=== PATIENT | male | born 1940 | race Native Hawaiian/Other Pacific Islander ===

== ENCOUNTER 2018-01-24 15:04 | Inpatient (IN) | payer OTHER, SELFPAY ==
[2018-01-24] VITALS (7 sets, daily range): BP systolic 136–162; BP diastolic 78–113; PULSE 99–133; RESP 16–20; TEMP 36.8–37.6; O2SAT 93–96; BMI 24.0
--- NOTE | 2018-01-24 | DI.ECHO.S_ITS ---
[facility] +---------+ : : [address] : : : : [id number] : : : : Phone: [phone] Echocardiogram Report + + :Name: ROBB CASTANEDA III Study Date: 01/25/2018 Height: 70 in : :[facility] Exam Location: [facility] Weight: 165 lb : : Gender: Male BSA: 1.9 m2 : :: 1940 Age: 77 yrs BP: 133/86 mmHg: :Reason For Study: AFIB : : Performed By: Ronny Kurtz : :Referring: NELSON GOLDBERG : + + Interpretation Summary The left ventricle is normal in size. Left ventricular ejection fraction is estimated to be 25 +/- 5%. Except basal postero-lateral wall, which has relatively preserved contractility, rest of the LV segments are severely hypokinetic. The right ventricle is mildly dilated. Right ventricular systolic function is moderately reduced. There is moderate to severe mitral regurgitation. There is moderate tricuspid regurgitation. The right ventricular systolic pressure is estimated at 47 mmHg assuming a right atrial pressure of 15 mm Hg. The ascending aorta is mildly enlarged. There is a moderate right-sided pleural effusion. There is a moderately large left-sided pleural effusion. Procedure: A two-dimensional transthoracic echocardiogram with color flow and Doppler was performed. The study quality was technically good. There is no prior echocardiogram noted for this patient. The patient had a heart rate of 63-84 beats per minute. Left Ventricle: The left ventricle is normal in size. Left ventricular wall thickness is mildly increased. There is no thrombus. Left ventricular ejection fraction is estimated to be 25 +/- 5%. Except basal posterior lateral wall, which has relatively preserved contractility, rest of the LV segments are severely hypokinetic. Diastolic function could not be accurately assessed due to atrial fibrillation. Right Ventricle: The right ventricle is mildly dilated. Right ventricular systolic function is moderately reduced. The mid to distal free wall is hypokinetic. Atria: The left atrium is severely dilated. The right atrium is mild to moderately dilated. The interatrial septum is intact with no evidence for an atrial septal defect. Mitral Valve: There is mild mitral annular calcification. There is moderate to severe mitral regurgitation. Aortic Valve: The aortic valve is trileaflet. The aortic valve opens well. There is no aortic valve stenosis. There is trace aortic regurgitation. Tricuspid Valve: The tricuspid valve is normal. There is moderate tricuspid regurgitation. The right ventricular systolic pressure is estimated at 47 mmHg assuming a right atrial pressure of 15 mm Hg. Pulmonic Valve: The pulmonic valve leaflets are thin and pliable; valve motion is normal. There is trace pulmonic regurgitation. Great Vessels: The aortic root is normal size. The ascending aorta is mildly enlarged. The pulmonary artery is normal size. The IVC is dilated (diameter is greater than 2.1 cm) and it collapses less than 50% with a sniff. This suggests a high right atrial pressure of 15 mm Hg. Pericardium/ Pleura There is no pericardial effusion. There is a moderate right-sided pleural effusion. There is a moderately large left-sided pleural effusion. MMode/2D Measurements & Calculations LVIDd: 5.6 cm Ao root diam: 3.5 cm LVIDs: 4.6 cm Aortic Jxn: 2.5 cm FS: 17.4 % asc Aorta Diam: 3.5 cm EPSS: 0.95 cm IVSd: 1.1 cm LVPWd: 1.2 cm LV carrillo. diameter/BSA (cm/m^2): 2.9 LV sys. diameter/BSA (cm/m^2): 2.4 LA dimension: 4.6 cm RA long axis: 6.1 cm LA A2 area: 32.7 cm2 RA area: 22.7 cm2 LA A4 area: 29.7 cm2 RA vol: 72.2 ml LA length (vol): 6.7 cm RA : 37.6 ml/m2 LA vol: 123.1 ml IVC diam: 2.7 cm LA vol index: 64.0 ml/m2 RVD1 (basal): 4.1 cm RVD2 (mid): 3.5 cm Doppler Measurements & Calculations Ao V2 max: 96.4 cm/sec LVOT Max Yemi: 65.9 cm/sec Ao V2 mean: 69.3 cm/sec LV V1 max P.8 mmHg Ao max P.7 mmHg LV V1 VTI: 11.3 cm Ao mean P.1 mmHg sev ratio: 0.70 Ao V2 VTI: 16.2 cm MV E max yemi: 52.6 cm/sec TR max yemi: 285.4 cm/sec MV A max yemi: 1.1 cm/sec TR max P.6 mmHg MV E/A: 48.7 PA V2 max: 67.3 cm/sec Med Peak E' Yemi: 4.7 cm/sec PA V2 mean: 45.2 cm/sec E/E' med: 11.2 PA mean P.93 mmHg Lat Peak E' Yemi: 6.7 cm/sec PA pr(Accel): 45.7 mmHg E/E' lat: 7.9 PA Accel Time: 0.07 sec E/e' average: 9.5 MV dec time: 0.15 sec Reading Physician:MICHELLE
--- NOTE | 2018-01-24 15:25 | ED_ITS ---
HPI - Arrhythmia/Palpitations General Chief Complaint: Arrhythmia/Palpitations Stated Complaint: elevated heart rate,back pain Time Seen by Provider: 01/24/18 15:24 Source: patient Mode of arrival: ambulatory Limitations: no limitations History of Present Illness HPI narrative: Patient is a 77-year-old male who presents from the walk-in clinic with elevated heart rate. He has a history of AFib in is noted to be in AFib with RVR rate 130. He denies any chest pain heart palpitations dizziness or lightheadedness. He went to the walk-in clinic for a cough which he has had for the last 3 days. As he is currently staying on his sailboat and resides in [place]. He denies any fever or chills. His cough is nonproductive. He has noticed some weakness. Related Data Home Medications Medication Instructions Recorded Confirmed apixaban [Eliquis] 5 mg PO DAILY 01/24/18 01/24/18 atorvastatin 20 mg PO DAILY 01/24/18 01/24/18 losartan 25 mg PO DAILY 01/24/18 01/24/18 Allergies Allergy/AdvReac Type Severity Reaction Status Date / Time CURLY Inhibitors Allergy Mild Verified 01/24/18 15:27 codeine Allergy Mild Verified 01/24/18 15:27 Review of Systems Review of Systems All systems reviewed & are unremarkable except as noted in HPI and below Constitutional Denies chills, Denies fever(s), Denies lethargy and Denies weakness Eyes Denies change in vision, Denies eye discharge, Denies irritation and Denies loss of vision Cardiovascular Denies chest pain, Denies palpitations and Denies dyspnea Respiratory Reports cough and Denies dyspnea Gastrointestinal Gastrointestinal: Denies abdominal pain, Denies change in bowel habits, Denies diarrhea, Denies nausea and Denies vomiting Genitourinary Denies hematuria, Denies flank pain, Denies urinary incontinence and Denies urinary urgency Musculoskeletal Denies back pain, Denies muscle weakness, Denies numbness and Denies tingling Integumentary/Breasts Denies pruritus, Denies erythema, Denies rash and Denies wounds Neurologic Denies loss of vision, Denies numbness, Denies tingling and Denies weakness Endocrine Denies palpitations [facility] Medical History Atrial fib/flutter, transient (Acute) CHF (congestive heart failure) (Acute) Hypertension (Acute) Myocardial infarction (Acute) Stroke (Acute) Surgical History History of heart artery stent (Acute) Social History Smoking Status: Never smoker additional social history: Lives in [place] Exam Initial Vital Signs Initial Vital Signs: Vital Signs Temperature 98.2 F 01/24/18 15:21 Pulse Rate 132 H 01/24/18 15:21 Respiratory Rate 17 01/24/18 15:21 Blood Pressure 157/111 H 01/24/18 15:21 Pulse Oximetry 96 01/24/18 15:21 Const General: cooperative and well developed Nutritional Appearance: well nourished Orientation: alert, awake, oriented x3 and not confused Neck Neck: normal visual inspection, full ROM and no meningeal signs Chest Chest: normal inspection of the chest Resp Effort & Inspection: normal respiratory effort and able to speak in complete sentences Auscultation: clear to auscultation bilaterally, no rales, no rhonchi and no wheezes Cardio Rate: tachycardic Rhythm: abnormal rhythm irregularly irregular Heart Sounds: S1 normal and S2 normal GI Inspection: non-distended Palpation: soft, no hepatosplenomegaly, No guarding, No pulsatile mass and No tender Auscultation: normal bowel sounds Skin General: no rashes or lesions noted, No jaundice and No petechiae Neuro General: alert, awake and oriented x3 Course Orders Ordered: ED Orders 01/24/18 15:30 XR chest 1V Stat EKG-12 Lead Stat 01/24/18 15:31 Complete Blood Count AUTO DIFF Stat Comprehensive Metabolic Panel Stat Partial Thromboplastin Time Stat Prothrombin Time INR Stat Troponin & CK Cardiac Panel Stat 01/24/18 17:25 Troponin I Stat Discontinued Medications Diltiazem HCl (Cardizem) 20 mg IV NOW ONE Stop: 01/24/18 15:35 Last Admin: 01/24/18 15:40 Dose: 20 mg Ceftriaxone Sodium/Dextrose (Rocephin) 1 gm in 50 mls @ 100 mls/hr IV NOW ONE Stop: 01/24/18 17:43 Last Infusion: 01/24/18 18:12 Dose: 0 mls/hr Admin: 01/24/18 17:19 Dose: 100 mls/hr Azithromycin 500 mg/ Dextrose 250 mls @ 250 mls/hr IV NOW ONE Stop: 01/24/18 17:15 Last Admin: 01/24/18 18:13 Dose: 250 mls/hr Vital Signs - 8 hr 01/24/18 15:21 01/24/18 15:40 01/24/18 17:30 Temperature 98.2 F Pulse Rate 132 H 133 H 101 H Respiratory Rate 17 19 Blood Pressure 157/111 H 162/113 H Blood Pressure [Right Arm] 148/87 H Pulse Oximetry 96 94 01/24/18 17:42 Temperature Pulse Rate 99 H Respiratory Rate 16 Blood Pressure Blood Pressure [Right Arm] 148/87 H Pulse Oximetry 96 MDM - Arrhythmia/Palpitations Lab Data Attestation: I reviewed the patient's lab results. Result diagrams: 01/24/18 15:31 01/24/18 15:31 Lab Results 01/24/18 01/24/18 01/24/18 Range/Units 15:31 15:31 15:31 WBC 10.1 (4.5-11.0) X10^3/uL RBC 4.07 L (4.5-5.9) X10^6/uL Hgb 11.1 L (13.5-17.5) g/dL Hct 33.4 L (41-53) % MCV 82.0 (80-100) fL MCH 27.3 (26-34) PG MCHC 33.2 (30-36) % RDW 16.8 H (11.6-14.8) % Plt Count 149 L (150-400) X10^3/uL Neut % (Auto) 83.0 H (50-75) % Lymph % (Auto) 7.8 L (25-40) % [place] % (Auto) 8.9 (3-14) % Eos % (Auto) 0.1 L (2-4) % Baso % (Auto) 0.2 (0-2) % Neut # (Auto) 8400 H (3696-9819) /uL PT 15.3 H (10.1-12.7) SECONDS INR 1.4 H (0.9-1.3) APTT 33 (26.4-36.2) SECONDS Sodium 148 H (137-145) mmol/L Potassium 4.2 (3.4-5.1) mmol/L Chloride 108 H (98-107) mmol/L Carbon Dioxide 26 (22-32) mmol/L BUN 23 H (9-20) mg/dL Creatinine 0.90 (0.66-1.25) mg/dL Estimated GFR > 60.0 (>60) mL/min BUN/Creatinine Ratio 25.6 H (6-22) Glucose 118 H (80-110) mg/dL Calcium 9.2 (8.4-10.2) mg/dL Total Bilirubin 0.8 (0.2-1.3) mg/dL AST 49 (17-59) IU/L ALT 30 (21-72) IU/L Alkaline Phosphatase 56 (38-126) U/L Total Creatine Kinase 214 H (55-170) U/L CK-MB (CK-2) 5.71 H (<2.37) ng/mL CK-MB (CK-2) Rel Index 2.7 (1.5-5.0) % Troponin I 0.556 H* (0.01-0.034) ng/mL Total Protein 7.0 (6.3-8.2) g/dL Albumin 4.1 (3.5-5.0) g/dL Globulin 2.9 (1.7-4.1) g/dL Albumin/Globulin Ratio 1.4 (1.0-2.8) // Range/Units 17:25 WBC (4.5-11.0) X10^3/uL RBC (4.5-5.9) X10^6/uL Hgb (13.5-17.5) g/dL Hct (41-53) % MCV (80-100) fL MCH (26-34) PG MCHC (30-36) % RDW (11.6-14.8) % Plt Count (150-400) X10^3/uL Neut % (Auto) (50-75) % Lymph % (Auto) (25-40) % [place] % (Auto) (3-14) % Eos % (Auto) (2-4) % Baso % (Auto) (0-2) % Neut # (Auto) (7413-6776) /uL PT (10.1-12.7) SECONDS INR (0.9-1.3) APTT (26.4-36.2) SECONDS Sodium (137-145) mmol/L Potassium (3.4-5.1) mmol/L Chloride (98-107) mmol/L Carbon Dioxide (22-32) mmol/L BUN (9-20) mg/dL Creatinine (0.66-1.25) mg/dL Estimated GFR (>60) mL/min BUN/Creatinine Ratio (6-22) Glucose (80-110) mg/dL Calcium (8.4-10.2) mg/dL Total Bilirubin (0.2-1.3) mg/dL AST (17-59) IU/L ALT (21-72) IU/L Alkaline Phosphatase (38-126) U/L Total Creatine Kinase (55-170) U/L CK-MB (CK-2) (<2.37) ng/mL CK-MB (CK-2) Rel Index (1.5-5.0) % Troponin I 0.553 H* (0.01-0.034) ng/mL Total Protein (6.3-8.2) g/dL Albumin (3.5-5.0) g/dL Globulin (1.7-4.1) g/dL Albumin/Globulin Ratio (1.0-2.8) Imaging Data Chest x-ray: Radiologist's impression: [address] [address] XRay Report Signed Patient: Aguilar Huber III MR#: [id number] : 1940 Acct:[id number] Age/Sex: 77 / M Date of Service: 01/24/18 Loc: ED Accession Number: [id number] Procedure: XR chest 1V Ordering Provider: Shell Mehta D.O. PROCEDURE: XR CHEST 1V INDICATIONS: chest pain TECHNIQUE: One view of the chest was acquired. COMPARISON: None. FINDINGS: Surgical changes and devices: None. Lungs and pleura: No pleural effusions or pneumothorax. Patchy air space opacity noted in the right lung base concerning for pneumonia. There is mild cephalization of pulmonary vasculature and increased interstitial prominence concerning for CHF. Mediastinum: Mediastinal contours appear normal. Heart size is enlarged. Bones and chest wall: No suspicious bony lesions. Overlying soft tissues appear unremarkable. IMPRESSION: 1. Patchy opacity in the right lung base suspicious for pneumonia. 2. Cephalization of pulmonary vasculature and interstitial prominence concerning for CHF. Dictated by: Ilana Newby MD, PhD on 01/24/2018 at 15:48 ECG Data Attestation: I personally reviewed and interpreted this ECG as follows: Interpretation: EKG 1.: Atrial flutter rate [address] changes no priors to compare EKG 2. Atrial flutter rate 67 with PVCs no acute ST changes MDM Narrative Medical decision making narrative: Patient has pneumonia on x-ray with signs and symptoms consistent with pneumonia including cough and weakness. He is also noted to be in atrial flutter with RVR rate 130 he has. He responded well to diltiazem. He is unsure how long he has been in this atrial flutter. He has not had any chest pain or symptoms. He denies any medications except for Eliquis. Troponin is elevated this is likely demand ischemia from the AFib and possible pneumonia. He has not had any chest pain. Dr. Kebede has been updated on symptoms and test results recommends repeat troponin. She is aware of repeat troponin and it is ability. Agrees with observation. Recommend metoprolol 25 p.o. Q 6 and antibiotics for pneumonia. Discharge Plan Departure Patient Disposition: Admitted as Observation Clinical Impression: Atrial fibrillation, Pneumonia Admit Date/Time: 01/24/18 18:23 Admit Provider: Miranda Kebede
--- NOTE | 2018-01-24 15:30 | DI.RAD.S_ITS ---
PROCEDURE: XR CHEST 1V INDICATIONS: chest pain TECHNIQUE: One view of the chest was acquired. COMPARISON: None. FINDINGS: Surgical changes and devices: None. Lungs and pleura: No pleural effusions or pneumothorax. Patchy air space opacity noted in the right lung base concerning for pneumonia. There is mild cephalization of pulmonary vasculature and increased interstitial prominence concerning for CHF. Mediastinum: Mediastinal contours appear normal. Heart size is enlarged. Bones and chest wall: No suspicious bony lesions. Overlying soft tissues appear unremarkable. IMPRESSION: 1. Patchy opacity in the right lung base suspicious for pneumonia. 2. Cephalization of pulmonary vasculature and interstitial prominence concerning for CHF. Dictated by: Ilana Newby MD, PhD on 01/24/2018 at 15:48 Approved by: Ilana Newby MD, PhD on 01/24/2018 at 15:49
[2018-01-24] MEDS: dilTIAZem 25 MG/5 ML SDV 20 MG IV (15:40)
[2018-01-24 15:47] LABS: Add Manual Diff / Slide Review NO; Basophils Percent Auto 0.2 % (0-2); Eosinophils Percent Auto 0.1 % (2-4); Hematocrit 33.4 % (41-53); Hemoglobin 11.1 g/dL (13.5-17.5); Lymphocytes Percent Auto 7.8 % (25-40); Mean Corpuscular HGB Conc 33.2 % (30-36); Mean Corpuscular Hemoglobin 27.3 PG (26-34); Monocytes Percent Auto 8.9 % (3-14); Neutrophils Absolute Auto 8400 /uL (3000-5900); Platelet Count 149 X10^3/uL (150-400); Red Blood Cell Count 4.07 X10^6/uL (4.5-5.9); Red Cell Distribution Width 16.8 % (11.6-14.8); White Blood Cell Count 10.1 X10^3/uL (4.5-11.0)
[2018-01-24 15:48] LABS: INR 1.4 (0.9-1.3); Prothrombin Time 15.3 SECONDS (10.1-12.7)
[2018-01-24 15:50] LABS: PTT Partial Thromboplastin Tim 33 SECONDS (26.4-36.2)
--- NOTE | 2018-01-24 16:01 | PC.NURSE ---
Pt states he has had a cold with cough and back pain for a week. Went to walk in clinic for the cold and was sent here for rapid heart rate. In the past, he has experienced afib with no symptoms. Today he has no symptoms other than his cold symptoms. He denies chest pain, palpitations, nausea, vomiting. He has shortness of breath associated with his cold, per the pt.
[2018-01-24 16:43] LABS: Alanine Aminotransferase 30 IU/L (21-72); Albumin 4.1 g/dL (3.5-5.0); Albumin Globulin Ratio 1.4 (1.0-2.8); Alkaline Phosphatase 56 U/L (38-126); Aspartate Aminotransferase 49 IU/L (17-59); BUN Creatinine Ratio 25.6 (6-22); Bilirubin Total 0.8 mg/dL (0.2-1.3); Blood Urea Nitrogen 23 mg/dL (9-20); Calcium 9.2 mg/dL (8.4-10.2); Carbon Dioxide 26 mmol/L (22-32); Chloride 108 mmol/L (98-107); Creatine Kinase 214 U/L (55-170); Estimated Glomerular Filt Rate > 60.0 mL/min (>60); Globulin 2.9 g/dL (1.7-4.1); Glucose 118 mg/dL (80-110); HEMOLYSIS < 15 (0-50); Potassium 4.2 mmol/L (3.4-5.1); Sodium 148 mmol/L (137-145)
[2018-01-24 16:58] LABS: CKMB % Relative Index 2.7 % (1.5-5.0); Creatine Kinase MB 5.71 ng/mL (<2.37)
[2018-01-24] MEDS: CEFTRIAXONE 1 GM/50 ML FROZ.PIGGY IV (17:19)
[2018-01-24 17:22] LABS: Troponin I 0.556 ng/mL (0.01-0.034)
[2018-01-24 17:51] LABS: Troponin I 0.553 ng/mL (0.01-0.034)
[2018-01-24] MEDS: AZITHROMYCIN 500 MG in DEXTROSE 5% IN WATER 250 ML IV (18:13)
--- NOTE | 2018-01-24 19:47 | PC.NURSE ---
Addendum entered by Marisabel Madrigal R.N. 01/24/18 22:06: Pt contnues in a-fib. aware. Metoprolol given Pt denies any S/S or discomfort. Call light w/in reach. Continue w/plan of care. Original Note: Pt arrived from ER @ 1920. Alert/oriented. ' Denies discomfort at this time. VS [id number]/78 Tele placed. IV infusing as per orders via pump w/o inciidence, Pt oriented to room & call system.
--- NOTE | 2018-01-24 21:28 | P.HP_ITS ---
History of Present Illness Chief complaint: elevated heart rate,back pain Narrative: Patient is a 77 y/o man with a history of atrial fibrillation, stroke , OR s/p stent who was boating from [place] when he developed back pain, neck pain, and shortness of breath. His family urged him to be evaluated at the urgent care clinic where he was found to be in Atrial Fibrillation with rapid ventricular response. The patient was sent to the ED where Chest Xray confirmed a right lower lobe pneumonia. Patient also noted to have an elevated troponin and rapid heart rate. Patient continues to complain of shortness of breath with exertion. He describes right sided shoulder/arm pain worse with activity. He denies chest pain or palpitations. He has had a non productive cough, no fever, no chills, no nausea, vomitting, diarrhea, dysuria, pyuria, lower extremity swelling, orthpnea, headache blurred vision, double vision or weakness. Patient History Medical History Atrial fib/flutter, transient (Acute) CHF (congestive heart failure) (Acute) Hypertension (Acute) Myocardial infarction (Acute) Stroke (Acute) Surgical History History of heart artery stent (Acute) Family & Social History Family History: Reviewed 01/24/18 by Miranda Kebede MD Social History: No smoking, drinks 1-2 drinks per night household members family Prior Living Arrangements House Safety & Behavioral: Feels Safe in Current Yes Environment Been Physically Hurt or No Threatened By a Person Suicidal Ideation Description None Suicide Plan Description No Plan Tobacco & Substance use: Smoking Status Never smoker alcohol intake frequency a few times a week Substance Use Type does not use Meds Home Medications Medication Instructions Recorded Confirmed Type apixaban [Eliquis] 5 mg PO DAILY 01/24/18 01/24/18 History atorvastatin 20 mg PO DAILY 01/24/18 01/24/18 History losartan 25 mg PO DAILY 01/24/18 01/24/18 History Allergies Allergy/AdvReac Type Severity Reaction Status Date / Time CURLY Inhibitors Allergy Mild Verified 01/24/18 15:27 codeine Allergy Mild Verified 01/24/18 15:27 Review of Systems Review of Systems All systems reviewed & are unremarkable except as noted in HPI and below Exam Vital Signs (past 8 hours): - 01/24/18 15:21 01/24/18 15:40 01/24/18 17:30 Temperature 98.2 F Pulse Rate 132 H 133 H 101 H Respiratory Rate 17 19 Blood Pressure 157/111 H 162/113 H Blood Pressure [Right Arm] 148/87 H Pulse Oximetry 96 94 01/24/18 17:42 01/24/18 18:41 01/24/18 18:42 Temperature Pulse Rate 99 H 101 H 101 H Respiratory Rate 16 18 18 Blood Pressure 145/92 H Blood Pressure [Right Arm] 148/87 H 145/92 H Pulse Oximetry 96 95 95 01/24/18 19:20 Temperature 99.7 F H Pulse Rate 104 H Respiratory Rate 20 Blood Pressure 136/78 H Blood Pressure [Right Arm] Pulse Oximetry 93 Oxygen Delivery Method Room Air Oxygen Flow Rate 0 Narrative Exam Narrative: HEENT: NC/AT, PERRL, EOMI, NO facial droop, Neck supple, No JVD , no Adenopathy Lungs: Right basilar crackles CV: Tachy Irregularly irregular Abd: Soft/ non tender/ non distended, no HSM Ext: trace edema Neuro: non focal Skin: no lesions Objective Labs Result Diagrams: 01/24/18 15:31 01/24/18 15:31 Labs: Laboratory Results - last 24 hr 01/24/18 01/24/18 01/24/18 15:31 15:31 15:31 WBC 10.1 RBC 4.07 L Hgb 11.1 L Hct 33.4 L MCV 82.0 MCH 27.3 MCHC 33.2 RDW 16.8 H Plt Count 149 L Neut % (Auto) 83.0 H Lymph % (Auto) 7.8 L [place] % (Auto) 8.9 Eos % (Auto) 0.1 L Baso % (Auto) 0.2 Neut # (Auto) 8400 H PT 15.3 H INR 1.4 H APTT 33 Sodium 148 H Potassium 4.2 Chloride 108 H Carbon Dioxide 26 BUN 23 H Creatinine 0.90 Estimated GFR > 60.0 BUN/Creatinine Ratio 25.6 H Glucose 118 H Calcium 9.2 Total Bilirubin 0.8 AST 49 ALT 30 Alkaline Phosphatase 56 Total Creatine Kinase 214 H CK-MB (CK-2) 5.71 H CK-MB (CK-2) Rel Index 2.7 Troponin I 0.556 H* Total Protein 7.0 Albumin 4.1 Globulin 2.9 Albumin/Globulin Ratio 1.4 01/24/18 17:25 WBC RBC Hgb Hct MCV MCH MCHC RDW Plt Count Neut % (Auto) Lymph % (Auto) [place] % (Auto) Eos % (Auto) Baso % (Auto) Neut # (Auto) PT INR APTT Sodium Potassium Chloride Carbon Dioxide BUN Creatinine Estimated GFR BUN/Creatinine Ratio Glucose Calcium Total Bilirubin AST ALT Alkaline Phosphatase Total Creatine Kinase CK-MB (CK-2) CK-MB (CK-2) Rel Index Troponin I 0.553 H* Total Protein Albumin Globulin Albumin/Globulin Ratio Assessment & Plan (1) Atrial fibrillation: Problem details: Will continue metoprolol every 6 hours, Will check echo cardiogram, check TSH Continue eliquis Qualifiers: Atrial fibrillation type: persistent Qualified Code(s): I48.1 - Persistent atrial fibrillation Current visit: Yes Status: Acute (2) Pneumonia: Problem details: Continue IV antibiotics, Tylenol for fever Qualifiers: Aspiration pneumonia type: Laterality: right Lung location: lower lobe of lung Pneumonia type: due to unspecified organism Qualified Code(s): J18.1 - Lobar pneumonia, unspecified organism Current visit: Yes Status: Acute (3) Acute hypernatremia: Problem details: will follow closely Current visit: Yes Status: Acute (4) Elevated troponin: Problem details: Will trend troponins and continue Asa, Statin, Cardiology consult in Am Current visit: Yes Status: Acute Plan: Assessment/Plan Narrative: Full Code per patient wishes
[2018-01-24] MEDS: APIXABAN 5 MG TABLET PO (22:02)
[2018-01-24] MEDS: levoFLOXacin 750 MG/150 ML PIGGYBACK 100 MG IV (22:02)
[2018-01-24] MEDS: METOPROLOL 50 MG TABLET PO (22:10)
[2018-01-25] VITALS (8 sets, daily range): BP systolic 132–151; BP diastolic 70–118; PULSE 45–123; RESP 12–22; TEMP 36.5–36.9; O2SAT 91–94
--- NOTE | 2018-01-25 00:43 | PC.NURSE ---
Addendum entered by Janice Fall R.N. 01/25/18 04:31: Has been awake entire shift but declined earlier offer to call MD for sleeping med and also declined other sleep aid offers such as warm milk or tea. Current BP is 140/103 on left arm and 147/103 on right arm with HR on telemetry showing 125 bpm; medicated with scheduled Metoprolol at this time since last dose was at 2200 and is ordered q6h. Original Note: Patient is alert and oriented. Breath sounds are CTA with RA sat of 93%; does sound coarse in right LL. HR is irregular with telemetry reading of afib CVR/BBB at 0000. Currently BP is 139/103 on right arm and 143/78 on left arm. Denies nausea. BT present and abdomen is soft. Denies dysuria, frequency, urgency or incontinence and is using urinal. Independent with bed mobility. Reports no recent falls but did request patient to call for assistance when getting out of bed as is moderate fall risk; patient verbalizes understanding and is agreeable. Denies pain.
[2018-01-25 01:40] LABS: Creatine Kinase 196 U/L (55-170)
[2018-01-25 01:54] LABS: Troponin I 0.688 ng/mL (0.01-0.034)
[2018-01-25] MEDS: METOPROLOL 25 MG TABLET 50 MG PO (04:26)
[2018-01-25 05:56] LABS: Add Manual Diff / Slide Review NO; Basophils Percent Auto 0.2 % (0-2); Eosinophils Percent Auto 0.1 % (2-4); Hematocrit 35.3 % (41-53); Hemoglobin 11.6 g/dL (13.5-17.5); Lymphocytes Percent Auto 11.8 % (25-40); Mean Corpuscular Hemoglobin 27.1 PG (26-34); Mean Corpuscular Volume 82.3 fL (80-100); Monocytes Percent Auto 8.9 % (3-14); Neutrophils Absolute Auto 7500 /uL (3000-5900); Platelet Count 156 X10^3/uL (150-400); Red Blood Cell Count 4.29 X10^6/uL (4.5-5.9); Red Cell Distribution Width 16.9 % (11.6-14.8); White Blood Cell Count 9.4 X10^3/uL (4.5-11.0)
[2018-01-25 06:13] LABS: BUN Creatinine Ratio 24.4 (6-22); Blood Urea Nitrogen 22 mg/dL (9-20); Carbon Dioxide 26 mmol/L (22-32); Chloride 107 mmol/L (98-107); Estimated Glomerular Filt Rate > 60.0 mL/min (>60); Glucose 130 mg/dL (80-110); HEMOLYSIS < 15 (0-50); Potassium 4.4 mmol/L (3.4-5.1); Sodium 142 mmol/L (137-145)
[2018-01-25 06:54] LABS: TSH w/ Reflex to FT4 3.19 uIU/mL (0.47-4.68)
--- NOTE | 2018-01-25 08:19 | PM.HP.1 ---
History of Present Illness Chief complaint: elevated heart rate,back pain Narrative: Patient is a 77 y/o man with a history of atrial fibrillation, stroke, [place] s/p stent who was boating from [place] when he developed back pain, neck pain, and shortness of breath. His family urged him to be evaluated at the urgent care clinic where he was found to be in Atrial Fibrillation with rapid ventricular response. The patient was sent to the ED where Chest Xray confirmed a right lower lobe pneumonia. Patient also noted to have an elevated troponin and rapid heart rate. Patient continues to complain of shortness of breath with exertion. He describes right sided shoulder/arm pain worse with activity. He denies chest pain or palpitations. He has had a non productive cough, no fever, no chills, no nausea, vomitting, diarrhea, dysuria, pyuria, lower extremity swelling, orthpnea, headache blurred vision, double vision or weakness. Patient History Medical History Atrial fib/flutter, transient (Acute) CHF (congestive heart failure) (Acute) Hypertension (Acute) Myocardial infarction (Acute) Stroke (Acute) Surgical History History of heart artery stent (Acute) Family & Social History Social History: household members family Prior Living Arrangements House Safety & Behavioral: Feels Safe in Current Yes Environment Been Physically Hurt or No Threatened By a Person Suicidal Ideation Description None Suicide Plan Description No Plan Tobacco & Substance use: Smoking Status Never smoker alcohol intake frequency a few times a week Substance Use Type does not use Meds Home Medications Medication Instructions Recorded Confirmed Type apixaban [Eliquis] 5 mg PO DAILY 01/24/18 01/24/18 History atorvastatin 20 mg PO DAILY 01/24/18 01/24/18 History losartan 25 mg PO DAILY 01/24/18 01/24/18 History Allergies Allergy/AdvReac Type Severity Reaction Status Date / Time CURLY Inhibitors Allergy Mild Verified 01/24/18 15:27 codeine Allergy Mild Verified 01/24/18 15:27 Exam Vital Signs (past 8 hours): - 01/25/18 00:25 01/25/18 00:33 01/25/18 04:15 Temperature 97.9 F 97.8 F Pulse Rate 101 H 110 H Respiratory Rate 16 16 Blood Pressure 142/78 H 140/103 H Pulse Oximetry 93 93 91 Oxygen Delivery Method Room Air Oxygen Flow Rate 0 Objective Labs Result Diagrams: 01/25/18 05:27 01/25/18 05:27 Labs: Laboratory Results - last 24 hr 01/24/18 01/24/18 01/24/18 15:31 15:31 15:31 WBC 10.1 RBC 4.07 L Hgb 11.1 L Hct 33.4 L MCV 82.0 MCH 27.3 MCHC 33.2 RDW 16.8 H Plt Count 149 L Neut % (Auto) 83.0 H Lymph % (Auto) 7.8 L Mccone % (Auto) 8.9 Eos % (Auto) 0.1 L Baso % (Auto) 0.2 Neut # (Auto) 8400 H PT 15.3 H INR 1.4 H APTT 33 Sodium 148 H Potassium 4.2 Chloride 108 H Carbon Dioxide 26 BUN 23 H Creatinine 0.90 Estimated GFR > 60.0 BUN/Creatinine Ratio 25.6 H Glucose 118 H Calcium 9.2 Total Bilirubin 0.8 AST 49 ALT 30 Alkaline Phosphatase 56 Total Creatine Kinase 214 H CK-MB (CK-2) 5.71 H CK-MB (CK-2) Rel Index 2.7 Troponin I 0.556 H* B-Natriuretic Peptide Total Protein 7.0 Albumin 4.1 Globulin 2.9 Albumin/Globulin Ratio 1.4 [facility] 01/24/18 01/25/18 01/25/18 17:25 01:22 05:27 WBC 9.4 RBC 4.29 L Hgb 11.6 L Hct 35.3 L MCV 82.3 MCH 27.1 MCHC 33.0 RDW 16.9 H Plt Count 156 Neut % (Auto) 79.0 H Lymph % (Auto) 11.8 L Mccone % (Auto) 8.9 Eos % (Auto) 0.1 L Baso % (Auto) 0.2 Neut # (Auto) 7500 H PT INR APTT Sodium Potassium Chloride Carbon Dioxide BUN Creatinine Estimated GFR BUN/Creatinine Ratio Glucose Calcium Total Bilirubin AST ALT Alkaline Phosphatase Total Creatine Kinase 196 H CK-MB (CK-2) CK-MB (CK-2) Rel Index Troponin I 0.553 H* 0.688 H* B-Natriuretic Peptide Total Protein Albumin Globulin Albumin/Globulin Ratio [facility] 01/25/18 01/25/18 01/25/18 05:27 05:27 05:27 WBC RBC Hgb Hct MCV MCH MCHC RDW Plt Count Neut % (Auto) Lymph % (Auto) Mccone % (Auto) Eos % (Auto) Baso % (Auto) Neut # (Auto) PT INR APTT Sodium 142 Potassium 4.4 Chloride 107 Carbon Dioxide 26 BUN 22 H Creatinine 0.90 Estimated GFR > 60.0 BUN/Creatinine Ratio 24.4 H Glucose 130 H Calcium 9.0 Total Bilirubin AST ALT Alkaline Phosphatase Total Creatine Kinase CK-MB (CK-2) CK-MB (CK-2) Rel Index Troponin I B-Natriuretic Peptide 822.0 H Total Protein Albumin Globulin Albumin/Globulin Ratio TSH 3.19
[2018-01-25] MEDS: MORPHINE 2 MG/ML INJ IV (08:27)
[2018-01-25] MEDS: dilTIAZem 25 MG/5 ML SDV 10 MG IV (08:48)
[2018-01-25] MEDS: FUROSEMIDE 40 MG/4 ML VIAL IV (08:48)
[2018-01-25] MEDS: METOPROLOL 50 MG TABLET PO ×2 (10:06→17:30)
[2018-01-25] MEDS: ATORVASTATIN 20 MG TABLET PO (10:06)
[2018-01-25] MEDS: DOCUSATE 100 MG CAPSULE PO ×2 (10:06→20:56)
[2018-01-25] MEDS: SODIUM CHLORIDE 0.9% FLUSH 10 ML IV ×2 (10:06→20:56)
[2018-01-25] MEDS: ASPIRIN EC 81 MG TABLET PO (10:09)
[2018-01-25] MEDS: APIXABAN 5 MG TABLET PO (10:10)
--- NOTE | 2018-01-25 11:55 | P.HP_ITS ---
History of Present Illness Chief complaint: elevated heart rate,back pain Narrative: Patient is a 77 y/o man with a history of atrial fibrillation, stroke , [place] s/p stent who was boating from [place] when he developed back pain, neck pain, and shortness of breath. His family urged him to be evaluated at the urgent care clinic where he was found to be in Atrial Fibrillation with rapid ventricular response. The patient was sent to the ED where Chest Xray confirmed a right lower lobe pneumonia. Patient also noted to have an elevated troponin and rapid heart rate. Patient continues to complain of shortness of breath with exertion. He describes right sided shoulder/arm pain worse with activity. He denies chest pain or palpitations. He has had a non productive cough, no fever, no chills, no nausea, vomitting, diarrhea, dysuria, pyuria, lower extremity swelling, orthpnea, headache blurred vision, double vision or weakness. Patient History Medical History Atrial fib/flutter, transient (Acute) CHF (congestive heart failure) (Acute) Hypertension (Acute) Myocardial infarction (Acute) Stroke (Acute) Surgical History History of heart artery stent (Acute) Family & Social History Social History: household members family Prior Living Arrangements House Safety & Behavioral: Feels Safe in Current Yes Environment Been Physically Hurt or No Threatened By a Person Suicidal Ideation Description None Suicide Plan Description No Plan Tobacco & Substance use: Smoking Status Never smoker alcohol intake frequency a few times a week Substance Use Type does not use Meds Home Medications Medication Instructions Recorded Confirmed Type apixaban [Eliquis] 5 mg PO DAILY 01/24/18 01/24/18 History atorvastatin 20 mg PO DAILY 01/24/18 01/24/18 History losartan 25 mg PO DAILY 01/24/18 01/24/18 History Allergies Allergy/AdvReac Type Severity Reaction Status Date / Time CURLY Inhibitors Allergy Mild Verified 01/24/18 15:27 codeine Allergy Mild Verified 01/24/18 15:27 Exam Vital Signs (past 8 hours): - 01/25/18 00:25 01/25/18 00:33 01/25/18 04:15 Temperature 97.9 F 97.8 F Pulse Rate 101 H 110 H Respiratory Rate 16 16 Blood Pressure 142/78 H 140/103 H Pulse Oximetry 93 93 91 Oxygen Delivery Method Room Air Oxygen Flow Rate 0 Objective Labs Result Diagrams: 01/25/18 05:27 01/25/18 05:27 Labs: Laboratory Results - last 24 hr 01/24/18 01/24/18 01/24/18 15:31 15:31 15:31 WBC 10.1 RBC 4.07 L Hgb 11.1 L Hct 33.4 L MCV 82.0 MCH 27.3 MCHC 33.2 RDW 16.8 H Plt Count 149 L Neut % (Auto) 83.0 H Lymph % (Auto) 7.8 L [place] % (Auto) 8.9 Eos % (Auto) 0.1 L Baso % (Auto) 0.2 Neut # (Auto) 8400 H PT 15.3 H INR 1.4 H APTT 33 Sodium 148 H Potassium 4.2 Chloride 108 H Carbon Dioxide 26 BUN 23 H Creatinine 0.90 Estimated GFR > 60.0 BUN/Creatinine Ratio 25.6 H Glucose 118 H Calcium 9.2 Total Bilirubin 0.8 AST 49 ALT 30 Alkaline Phosphatase 56 Total Creatine Kinase 214 H CK-MB (CK-2) 5.71 H CK-MB (CK-2) Rel Index 2.7 Troponin I 0.556 H* B-Natriuretic Peptide Total Protein 7.0 Albumin 4.1 Globulin 2.9 Albumin/Globulin Ratio 1.4 [facility] 01/24/18 01/25/18 01/25/18 17:25 01:22 05:27 WBC 9.4 RBC 4.29 L Hgb 11.6 L Hct 35.3 L MCV 82.3 MCH 27.1 MCHC 33.0 RDW 16.9 H Plt Count 156 Neut % (Auto) 79.0 H Lymph % (Auto) 11.8 L [place] % (Auto) 8.9 Eos % (Auto) 0.1 L Baso % (Auto) 0.2 Neut # (Auto) 7500 H PT INR APTT Sodium Potassium Chloride Carbon Dioxide BUN Creatinine Estimated GFR BUN/Creatinine Ratio Glucose Calcium Total Bilirubin AST ALT Alkaline Phosphatase Total Creatine Kinase 196 H CK-MB (CK-2) CK-MB (CK-2) Rel Index Troponin I 0.553 H* 0.688 H* B-Natriuretic Peptide Total Protein Albumin Globulin Albumin/Globulin Ratio [facility] 01/25/18 01/25/18 01/25/18 05:27 05:27 05:27 WBC RBC Hgb Hct MCV MCH MCHC RDW Plt Count Neut % (Auto) Lymph % (Auto) [place] % (Auto) Eos % (Auto) Baso % (Auto) Neut # (Auto) PT INR APTT Sodium 142 Potassium 4.4 Chloride 107 Carbon Dioxide 26 BUN 22 H Creatinine 0.90 Estimated GFR > 60.0 BUN/Creatinine Ratio 24.4 H Glucose 130 H Calcium 9.0 Total Bilirubin AST ALT Alkaline Phosphatase Total Creatine Kinase CK-MB (CK-2) CK-MB (CK-2) Rel Index Troponin I B-Natriuretic Peptide 822.0 H Total Protein Albumin Globulin Albumin/Globulin Ratio TSH 3.19
--- NOTE | 2018-01-25 12:00 | P.PN_ITS ---
Subjective Date Patient Seen: 01/25/18 Interval history: Difficult night. He remained in rapid atrial fibrillation with minimal response to the metoprolol He felt more short of breath this morning with decreased oxygenation He continues to have back and shoulder pain Exam Vital Signs (past 8 hours): - 01/25/18 04:15 01/25/18 08:00 Temperature 97.8 F 97.7 F Pulse Rate 110 H 121 H Respiratory Rate 16 22 Blood Pressure 140/103 H 151/109 H Pulse Oximetry 91 92 Oxygen Delivery Method Room Air Oxygen Flow Rate 0 Narrative Exam Narrative: Lungs: scattered crackles bilaterally CV: Tachy irregularly, irregular Nl S1S2 3/6SEM Abd: soft/non tender Ext: trace edema Objective Labs Result Diagrams: 01/25/18 05:27 01/25/18 05:27 Labs: Laboratory Results - last 24 hr 01/24/18 01/24/18 01/24/18 15:31 15:31 15:31 WBC 10.1 RBC 4.07 L Hgb 11.1 L Hct 33.4 L MCV 82.0 MCH 27.3 MCHC 33.2 RDW 16.8 H Plt Count 149 L Neut % (Auto) 83.0 H Lymph % (Auto) 7.8 L [place] % (Auto) 8.9 Eos % (Auto) 0.1 L Baso % (Auto) 0.2 Neut # (Auto) 8400 H PT 15.3 H INR 1.4 H APTT 33 Sodium 148 H Potassium 4.2 Chloride 108 H Carbon Dioxide 26 BUN 23 H Creatinine 0.90 Estimated GFR > 60.0 BUN/Creatinine Ratio 25.6 H Glucose 118 H Calcium 9.2 Total Bilirubin 0.8 AST 49 ALT 30 Alkaline Phosphatase 56 Total Creatine Kinase 214 H CK-MB (CK-2) 5.71 H CK-MB (CK-2) Rel Index 2.7 Troponin I 0.556 H* B-Natriuretic Peptide Total Protein 7.0 Albumin 4.1 Globulin 2.9 Albumin/Globulin Ratio 1.4 TSH 01/24/18 01/25/18 01/25/18 17:25 01:22 05:27 WBC 9.4 RBC 4.29 L Hgb 11.6 L Hct 35.3 L MCV 82.3 MCH 27.1 MCHC 33.0 RDW 16.9 H Plt Count 156 Neut % (Auto) 79.0 H Lymph % (Auto) 11.8 L [place] % (Auto) 8.9 Eos % (Auto) 0.1 L Baso % (Auto) 0.2 Neut # (Auto) 7500 H PT INR APTT Sodium Potassium Chloride Carbon Dioxide BUN Creatinine Estimated GFR BUN/Creatinine Ratio Glucose Calcium Total Bilirubin AST ALT Alkaline Phosphatase Total Creatine Kinase 196 H CK-MB (CK-2) CK-MB (CK-2) Rel Index Troponin I 0.553 H* 0.688 H* B-Natriuretic Peptide Total Protein Albumin Globulin Albumin/Globulin Ratio TSH 01/25/18 01/25/18 01/25/18 05:27 05:27 05:27 WBC RBC Hgb Hct MCV MCH MCHC RDW Plt Count Neut % (Auto) Lymph % (Auto) [place] % (Auto) Eos % (Auto) Baso % (Auto) Neut # (Auto) PT INR APTT Sodium 142 Potassium 4.4 Chloride 107 Carbon Dioxide 26 BUN 22 H Creatinine 0.90 Estimated GFR > 60.0 BUN/Creatinine Ratio 24.4 H Glucose 130 H Calcium 9.0 Total Bilirubin AST ALT Alkaline Phosphatase Total Creatine Kinase CK-MB (CK-2) CK-MB (CK-2) Rel Index Troponin I B-Natriuretic Peptide 822.0 H Total Protein Albumin Globulin Albumin/Globulin Ratio TSH 3.19 Assessment & Plan (1) Non-STEMI (non-ST elevated myocardial infarction): Problem details: Patient is on Asa, B-renaldo, Statin He will need nuclear medicine perfusion study once his heart rate is controlled Current visit: Yes Status: Acute (2) Acute systolic heart failure: Problem details: Continue IV Lasix for now. Will resume CURLY-1 Given hypertension he needs it now Echo: confirmed EF 25% with hypokinetic ventricle, dilated right ventricle, severe mitral regurgitation, and some tricuspid regurgitation Current visit: Yes Status: Acute (3) Atrial fibrillation: Problem details: Will continue metoprolol every 6 hours, Will check echo cardiogram, check TSH Continue eliquis. Increased metoprolol. Heart rate noted to be 61 earlier, will follow closely to be sure we don't have SSS involved Qualifiers: Atrial fibrillation type: persistent Qualified Code(s): I48.1 - Persistent atrial fibrillation Current visit: Yes Status: Acute (4) Pneumonia: Problem details: Continue IV antibiotics, Tylenol for fever Qualifiers: Aspiration pneumonia type: Laterality: right Lung location: lower lobe of lung Pneumonia type: due to unspecified organism Qualified Code(s): J18.1 - Lobar pneumonia, unspecified organism Current visit: Yes Status: Acute
[2018-01-25] MEDS: LOSARTAN 25 MG TABLET PO (12:12)
--- NOTE | 2018-01-25 12:49 | PC.NURSE ---
Addendum entered by Nichelle Johnson R.N. 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 Original Note: Assess- Pt is A&Ox3 and states that he is having back pain, nausea, and feeling dizzy. BP initially 151/109 and pulse up to 125. Talked to and she ordered 10mg of iv diltiazem and 40mg of iv lasix to be given. Dilt given at 0840 and pulse down to the 70s-80s. Waited for another half hour and gave Lasix to pt. Bp 174/109 and pulse 70. Rechecked BP and down to 136/78 after 50mg of PO Metoprolol given and pulse 78. Pulse back up to 120s after pt stood up to use the urinal. into see pt shortly after this and blood pressure checked and up to high 100s/118. ordered 25mg of coreg to be given, will recheck bp shortly. She would also like pt to have lasix 40mg iv again. Pt is visiting with brother at this time.
--- NOTE | 2018-01-25 12:52 | PM.CN ---
History of Present Illness Date Patient Seen: 01/25/18 Time Patient Seen: 12:54 Chief complaint: elevated heart rate,back pain Reason for consult: Rapid atrial fibrillation and CHF Narrative: The patient is a 77-year-old male whose cardiac history dates back to 1999 4 when he had an [place] and stenting to the LAD and reports there was ?no damage?. 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 He apparently was in sinus rhythm at that time and was treated with Plavix. He was admitted to [facility] in 2016 with rapid atrial fibrillation and heart failure. He reports his ejection fraction was in the 20s and he was started on warfarin that was ultimately changed to Eliquis, and started on carvedilol. He was treated transiently with furosemide. He subsequently went back to his home in [place] and was generally doing fairly well and reports normalization of his ejection fraction to the 50s but his carvedilol was stopped around 3 months ago because of concern about pauses. He was started on hydralazine in addition to his losartan. He traveled to the [facility] to go boating with his family and has been on a sailboat over the past week and over the last 3 to 4 days has noted some upper back and right shoulder discomfort that is positional but he was brought to Urgent Care where he was found to have atrial fibrillation with a rapid ventricular response and he also complained of exertional dyspnea over the last 3 days with a mild cough. He denies any chest discomfort or resting dyspnea or orthopnea. He has had no sense of any palpitations, lightheadedness, or presyncope. He denies any pedal edema or weight change. He was subsequently admitted and started on metoprolol therapy with improvement in his heart rate control and has felt somewhat better with resolution of his back and shoulder discomfort but his initial troponin was elevated at 0.56, increasing to 0.63 today. An echocardiogram was obtained this morning and now shows an ejection fraction of around 25% with global hypokinesis with the exception of preserved contractility in the posterolateral wall, concerning for possible ischemic cardiomyopathy. The right ventricle is mildly enlarged and moderately hypokinetic with moderate to severe mitral regurgitation and moderate tricuspid regurgitation with a PA P estimated at 457 mm of mercury and a CVP of 15 mm of mercury. Bilateral pleural effusions were noted. [facility] Medical History Atrial fib/flutter, transient (Acute) CHF (congestive heart failure) (Acute) Hypertension (Acute) Myocardial infarction (Acute) Stroke (Acute) Surgical History History of heart artery stent (Acute) Family History Father Myocardial infarction Brother Myocardial infarction Social History household members: family Smoking Status: Never smoker additional social history: Lives in [place] Comment: He smoked 3 packs per day for around 15 years but stopped in 1971. He admits to drinking 2 glasses of wine on a regular basis. 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 [place] and is , living alone but traveling on the [facility] with his family [employer] Home Medications Medication Instructions Recorded Confirmed Type apixaban [Eliquis] 5 mg PO DAILY 01/24/18 01/24/18 History atorvastatin 20 mg PO DAILY 01/24/18 01/24/18 History losartan 25 mg PO DAILY 01/24/18 01/24/18 History Allergies Allergy/AdvReac Type Severity Reaction Status Date / Time CURLY Inhibitors Allergy Mild Verified 01/24/18 15:27 codeine Allergy Mild Verified 01/24/18 15:27 Review of Systems Review of Systems A complete review was performed and is unremarkable except for his cough. He denies any GI blood loss or genitourinary complaints. He has had no further such stroke-like symptoms since 2012. Exam Vital Signs (past 8 hours): - 01/25/18 07:00 01/25/18 08:00 Temperature 97.7 F Pulse Rate 121 H Respiratory Rate 22 Blood Pressure 151/109 H Pulse Oximetry 94 92 Oxygen Delivery Method Room Air Oxygen Flow Rate 0 Narrative Exam Narrative: A pleasant and elderly white male in no distress. Skin: Warm and dry. HEENT: EOMI with mild arcus but good dentition. Lungs: Slight crackles bilaterally with some dullness at both bases but clear in the upper lung rockwell. CV: Mildly rapid, irregularly irregular rhythm without any appreciable murmurs or gallops. JVP appears to be around 8 to 10 cm. Carotid and femoral pulses are 2+ bilaterally with normal upstroke and no bruit. Dorsalis pedis pulses are nonpalpable and posterior tibial pulses nonpalpable on the right and 2+ on the left. Abdomen: Mildly distended but nontender without any hepatosplenomegaly. Normal bowel sounds present without bruits. Extremities: Slightly cool feet but otherwise warm. No clubbing, cyanosis, or edema. Neuro: Moves all 4 extremities. Psych: Awake alert and oriented. Objective Labs Result Diagrams: 01/25/18 05:27 01/25/18 05:27 Labs: Laboratory Results - last 24 hr 01/24/18 01/24/18 01/24/18 15:31 15:31 15:31 WBC 10.1 RBC 4.07 L Hgb 11.1 L Hct 33.4 L MCV 82.0 MCH 27.3 MCHC 33.2 RDW 16.8 H Plt Count 149 L Neut % (Auto) 83.0 H Lymph % (Auto) 7.8 L Harmon % (Auto) 8.9 Eos % (Auto) 0.1 L Baso % (Auto) 0.2 Neut # (Auto) 8400 H PT 15.3 H INR 1.4 H APTT 33 Sodium 148 H Potassium 4.2 Chloride 108 H Carbon Dioxide 26 BUN 23 H Creatinine 0.90 Estimated GFR > 60.0 BUN/Creatinine Ratio 25.6 H Glucose 118 H Calcium 9.2 Total Bilirubin 0.8 AST 49 ALT 30 Alkaline Phosphatase 56 Total Creatine Kinase 214 H CK-MB (CK-2) 5.71 H CK-MB (CK-2) Rel Index 2.7 Troponin I 0.556 H* B-Natriuretic Peptide Total Protein 7.0 Albumin 4.1 Globulin 2.9 Albumin/Globulin Ratio 1.4 TSH 01/24/18 01/25/18 01/25/18 17:25 01:22 05:27 WBC 9.4 RBC 4.29 L Hgb 11.6 L Hct 35.3 L MCV 82.3 MCH 27.1 MCHC 33.0 RDW 16.9 H Plt Count 156 Neut % (Auto) 79.0 H Lymph % (Auto) 11.8 L Harmon % (Auto) 8.9 Eos % (Auto) 0.1 L Baso % (Auto) 0.2 Neut # (Auto) 7500 H PT INR APTT Sodium Potassium Chloride Carbon Dioxide BUN Creatinine Estimated GFR BUN/Creatinine Ratio Glucose Calcium Total Bilirubin AST ALT Alkaline Phosphatase Total Creatine Kinase 196 H CK-MB (CK-2) CK-MB (CK-2) Rel Index Troponin I 0.553 H* 0.688 H* B-Natriuretic Peptide Total Protein Albumin Globulin Albumin/Globulin Ratio TSH 01/25/18 01/25/18 01/25/18 05:27 05:27 05:27 WBC RBC Hgb Hct MCV MCH MCHC RDW Plt Count Neut % (Auto) Lymph % (Auto) Harmon % (Auto) Eos % (Auto) Baso % (Auto) Neut # (Auto) PT INR APTT Sodium 142 Potassium 4.4 Chloride 107 Carbon Dioxide 26 BUN 22 H Creatinine 0.90 Estimated GFR > 60.0 BUN/Creatinine Ratio 24.4 H Glucose 130 H Calcium 9.0 Total Bilirubin AST ALT Alkaline Phosphatase Total Creatine Kinase CK-MB (CK-2) CK-MB (CK-2) Rel Index Troponin I B-Natriuretic Peptide 822.0 H Total Protein Albumin Globulin Albumin/Globulin Ratio TSH 3.19 Assessment & Plan Plan: Assessment/Plan Narrative: 1. 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 Given his rapid atrial fibrillation, I suspect the most likely explanation for his cardiomyopathy is a rate-related cardiomyopathy. However, with his history of coronary artery disease and his elevated troponins, as well as the mild focality noted on his echocardiogram, and ischemic cardiomyopathy is also very possible. Given this, I have recommended transfer to [facility] for a coronary angiogram to assess his coronary anatomy. If this is benign, then I suspect that rate control will be the predominant treatment. I would reinstitute carvedilol as tolerated to obtain better blood pressure and heart rate control. If he demonstrated concerning pauses or bradycardia, then pacemaker implantation may be needed to allow escalation of rate-controlling medications. In the meantime, he is clearly volume overloaded and I would continue with furosemide with close observation of his electrolytes and renal function. 2. Rapid atrial fibrillation. As above. Rate control should be the main focus. I would continue with metoprolol currently. Low-dose digoxin could be added as necessary but with close observation of the digoxin level he will need his Eliquis held prior to cardiac catheterization. 3. History of stroke. 4. Hypertension. I would continue to focus on beta-blockade and diuresis. Plan: 1. Continue with diuresis with IV furosemide and rate control with metoprolol. 2. Transfer to [facility] for coronary angiography and continued titration of his medications. 3. Consider pacemaker implantation if he develops tachy-cindy syndrome. Otherwise, this can be deferred to his provisioning specialist in [place]. Time Spent With Patient Time with patient: Greater than 35 minutes
--- NOTE | 2018-01-25 13:10 | P.CONS_ITS ---
History of Present Illness Date Patient Seen: 01/25/18 Time Patient Seen: 12:54 Chief complaint: elevated heart rate,back pain Reason for consult: Rapid atrial fibrillation and CHF Narrative: The patient is a 77-year-old male whose cardiac history dates back to 1999 4 when he had an MT and stenting to the LAD and reports there was ?no damage?. 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 He apparently was in sinus rhythm at that time and was treated with Plavix. He was admitted to [facility] in 2016 with rapid atrial fibrillation and heart failure. He reports his ejection fraction was in the 20s and he was started on warfarin that was ultimately changed to Eliquis, and started on carvedilol. He was treated transiently with furosemide. He subsequently went back to his home in [place] and was generally doing fairly well and reports normalization of his ejection fraction to the 50s but his carvedilol was stopped around 3 months ago because of concern about pauses. He was started on hydralazine in addition to his losartan. He traveled to the [facility] to go boating with his family and has been on a sailboat over the past week and over the last 3 to 4 days has noted some upper back and right shoulder discomfort that is positional but he was brought to Urgent Care where he was found to have atrial fibrillation with a rapid ventricular response and he also complained of exertional dyspnea over the last 3 days with a mild cough. He denies any chest discomfort or resting dyspnea or orthopnea. He has had no sense of any palpitations, lightheadedness, or presyncope. He denies any pedal edema or weight change. He was subsequently admitted and started on metoprolol therapy with improvement in his heart rate control and has felt somewhat better with resolution of his back and shoulder discomfort but his initial troponin was elevated at 0.56, increasing to 0.63 today. An echocardiogram was obtained this morning and now shows an ejection fraction of around 25% with global hypokinesis with the exception of preserved contractility in the posterolateral wall, concerning for possible ischemic cardiomyopathy. The right ventricle is mildly enlarged and moderately hypokinetic with moderate to severe mitral regurgitation and moderate tricuspid regurgitation with a PA P estimated at 457 mm of mercury and a CVP of 15 mm of mercury. Bilateral pleural effusions were noted. [facility] Medical History Atrial fib/flutter, transient (Acute) CHF (congestive heart failure) (Acute) Hypertension (Acute) Myocardial infarction (Acute) Stroke (Acute) Surgical History History of heart artery stent (Acute) Family History Father Myocardial infarction Brother Myocardial infarction Social History household members: family Smoking Status: Never smoker additional social history: Lives in [place] Comment: He smoked 3 packs per day for around 15 years but stopped in 1971. He admits to drinking 2 glasses of wine on a regular basis. 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 [place] and is , living alone but traveling on the [facility] with his family [employer] Home Medications Medication Instructions Recorded Confirmed Type apixaban [Eliquis] 5 mg PO DAILY 01/24/18 01/24/18 History atorvastatin 20 mg PO DAILY 01/24/18 01/24/18 History losartan 25 mg PO DAILY 01/24/18 01/24/18 History Allergies Allergy/AdvReac Type Severity Reaction Status Date / Time CURLY Inhibitors Allergy Mild Verified 01/24/18 15:27 codeine Allergy Mild Verified 01/24/18 15:27 Review of Systems Review of Systems A complete review was performed and is unremarkable except for his cough. He denies any GI blood loss or genitourinary complaints. He has had no further such stroke-like symptoms since 2012. Exam Vital Signs (past 8 hours): - 01/25/18 07:00 01/25/18 08:00 Temperature 97.7 F Pulse Rate 121 H Respiratory Rate 22 Blood Pressure 151/109 H Pulse Oximetry 94 92 Oxygen Delivery Method Room Air Oxygen Flow Rate 0 Narrative Exam Narrative: A pleasant and elderly white male in no distress. Skin: Warm and dry. HEENT: EOMI with mild arcus but good dentition. Lungs: Slight crackles bilaterally with some dullness at both bases but clear in the upper lung rockwell. CV: Mildly rapid, irregularly irregular rhythm without any appreciable murmurs or gallops. JVP appears to be around 8 to 10 cm. Carotid and femoral pulses are 2+ bilaterally with normal upstroke and no bruit. Dorsalis pedis pulses are nonpalpable and posterior tibial pulses nonpalpable on the right and 2+ on the left. Abdomen: Mildly distended but nontender without any hepatosplenomegaly. Normal bowel sounds present without bruits. Extremities: Slightly cool feet but otherwise warm. No clubbing, cyanosis, or edema. Neuro: Moves all 4 extremities. Psych: Awake alert and oriented. Objective Labs Result Diagrams: 01/25/18 05:27 01/25/18 05:27 Labs: Laboratory Results - last 24 hr 01/24/18 01/24/18 01/24/18 15:31 15:31 15:31 WBC 10.1 RBC 4.07 L Hgb 11.1 L Hct 33.4 L MCV 82.0 MCH 27.3 MCHC 33.2 RDW 16.8 H Plt Count 149 L Neut % (Auto) 83.0 H Lymph % (Auto) 7.8 L [place] % (Auto) 8.9 Eos % (Auto) 0.1 L Baso % (Auto) 0.2 Neut # (Auto) 8400 H PT 15.3 H INR 1.4 H APTT 33 Sodium 148 H Potassium 4.2 Chloride 108 H Carbon Dioxide 26 BUN 23 H Creatinine 0.90 Estimated GFR > 60.0 BUN/Creatinine Ratio 25.6 H Glucose 118 H Calcium 9.2 Total Bilirubin 0.8 AST 49 ALT 30 Alkaline Phosphatase 56 Total Creatine Kinase 214 H CK-MB (CK-2) 5.71 H CK-MB (CK-2) Rel Index 2.7 Troponin I 0.556 H* B-Natriuretic Peptide Total Protein 7.0 Albumin 4.1 Globulin 2.9 Albumin/Globulin Ratio 1.4 TSH 01/24/18 01/25/18 01/25/18 17:25 01:22 05:27 WBC 9.4 RBC 4.29 L Hgb 11.6 L Hct 35.3 L MCV 82.3 MCH 27.1 MCHC 33.0 RDW 16.9 H Plt Count 156 Neut % (Auto) 79.0 H Lymph % (Auto) 11.8 L [place] % (Auto) 8.9 Eos % (Auto) 0.1 L Baso % (Auto) 0.2 Neut # (Auto) 7500 H PT INR APTT Sodium Potassium Chloride Carbon Dioxide BUN Creatinine Estimated GFR BUN/Creatinine Ratio Glucose Calcium Total Bilirubin AST ALT Alkaline Phosphatase Total Creatine Kinase 196 H CK-MB (CK-2) CK-MB (CK-2) Rel Index Troponin I 0.553 H* 0.688 H* B-Natriuretic Peptide Total Protein Albumin Globulin Albumin/Globulin Ratio TSH 01/25/18 01/25/18 01/25/18 05:27 05:27 05:27 WBC RBC Hgb Hct MCV MCH MCHC RDW Plt Count Neut % (Auto) Lymph % (Auto) [place] % (Auto) Eos % (Auto) Baso % (Auto) Neut # (Auto) PT INR APTT Sodium 142 Potassium 4.4 Chloride 107 Carbon Dioxide 26 BUN 22 H Creatinine 0.90 Estimated GFR > 60.0 BUN/Creatinine Ratio 24.4 H Glucose 130 H Calcium 9.0 Total Bilirubin AST ALT Alkaline Phosphatase Total Creatine Kinase CK-MB (CK-2) CK-MB (CK-2) Rel Index Troponin I B-Natriuretic Peptide 822.0 H Total Protein Albumin Globulin Albumin/Globulin Ratio TSH 3.19 Assessment & Plan Plan: Assessment/Plan Narrative: 1. 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 Given his rapid atrial fibrillation, I suspect the most likely explanation for his cardiomyopathy is a rate-related cardiomyopathy. However, with his history of coronary artery disease and his elevated troponins, as well as the mild focality noted on his echocardiogram, and ischemic cardiomyopathy is also very possible. Given this, I have recommended transfer to [facility] for a coronary angiogram to assess his coronary anatomy. If this is benign, then I suspect that rate control will be the predominant treatment. I would reinstitute carvedilol as tolerated to obtain better blood pressure and heart rate control. If he demonstrated concerning pauses or bradycardia, then pacemaker implantation may be needed to allow escalation of rate-controlling medications. In the meantime , he is clearly volume overloaded and I would continue with furosemide with close observation of his electrolytes and renal function. 2. Rapid atrial fibrillation. As above. Rate control should be the main focus. I would continue with metoprolol currently. Low-dose digoxin could be added as necessary but with close observation of the digoxin level he will need his Eliquis held prior to cardiac catheterization. 3. History of stroke. 4. Hypertension. I would continue to focus on beta-blockade and diuresis. Plan: 1. Continue with diuresis with IV furosemide and rate control with metoprolol. 2. Transfer to [facility] for coronary angiography and continued titration of his medications. 3. Consider pacemaker implantation if he develops tachy-cindy syndrome. Otherwise, this can be deferred to his extractor puller in [place]. Time Spent With Patient Time with patient: Greater than 35 minutes
--- NOTE | 2018-01-25 13:26 | PM.DS.1 ---
History of Present Illness Chief complaint: elevated heart rate,back pain Narrative: Patient is a 77 y/o man with a history of atrial fibrillation, stroke, AR s/p stent who was boating from [place] when he developed back pain, neck pain, and shortness of breath. His family urged him to be evaluated at the urgent care clinic where he was found to be in Atrial Fibrillation with rapid ventricular response. The patient was sent to the ED where Chest Xray confirmed a right lower lobe pneumonia. Patient also noted to have an elevated troponin and rapid heart rate. Patient continues to complain of shortness of breath with exertion. He describes right sided shoulder/arm pain worse with activity. He denies chest pain or palpitations. He has had a non productive cough, no fever, no chills, no nausea, vomitting, diarrhea, dysuria, pyuria, lower extremity swelling, orthpnea, headache blurred vision, double vision or weakness. Discharge Providers Date of admission: 01/24/18 18:23 Consults: 01/24/18 19:22 Consult to Physician Routine Comment: Consulting Provider: Miranda Kebede Reason for consultation: admission Has provider been notified: Yes Discharge provider: Miranda Kebede MD Summary Discharge Diagnosis: Non-STEMI Atrial Fibrillation with rapid ventricular response Acute Systolic Congestive Heart Failure Mitral Regurgitation Moderate Pleural Effusion Hypertension Hyperlipidemia History of Stroke Hospital Course: Patient was admitted to the hospital yesterday with rapid atrial fibrillation and pneumonia. He was found to have elevated troponin's which persistantly remained elevated. Patient also complained of back and shoulder pain. He was started on metoprolol 50 every six hours for rate control. He has a history of Afib since 2016, diagnosed at [facility]. He takes eliquis for this. He was previously on coreg but it was discontinued due to bradycardia. His echo today was markedly abnormal revealing a very hypokinetic heart, moderate to severe Mitral regurgitation, moderate tricuspid regurgitation, a reduced ejection fraction of 25%, and a moderate to large left pleural effusion. Patient was seen by Cardiology, Dr. Farooq who recommended transfer to [facility] for definitive cardiac catherization. Of note the patient had an AR in 2004, has had a stent placed, followed by a stroke in 2012, and new onset Atrial Fibrillation in 2016. Status at Discharge Cognitive/behavioral status at discharge: at baseline Functional status at discharge: independent ambulation Overall status at discharge: patient is not back to baseline Time Spent with Patient Greater than 30 minutes Exam Vital Signs (past 8 hours): - 01/25/18 07:00 01/25/18 08:00 01/25/18 12:00 Temperature 97.7 F Pulse Rate 121 H 123 H Respiratory Rate 22 20 Blood Pressure 151/109 H 139/118 H Pulse Oximetry 94 92 Oxygen Delivery Method Room Air Oxygen Flow Rate 0 Narrative Exam Narrative: Lungs: Diffuse crackles bilaterally CV: tachy irregularly, irregular nl S1S2 2/6SEM Abd: soft/non tender non distended Ext: trace edema Objective Labs Result Diagrams: 01/25/18 05:27 01/25/18 05:27 Labs: Laboratory Results - last 24 hr 01/24/18 01/24/18 01/24/18 15:31 15:31 15:31 WBC 10.1 RBC 4.07 L Hgb 11.1 L Hct 33.4 L MCV 82.0 MCH 27.3 MCHC 33.2 RDW 16.8 H Plt Count 149 L Neut % (Auto) 83.0 H Lymph % (Auto) 7.8 L [place] % (Auto) 8.9 Eos % (Auto) 0.1 L Baso % (Auto) 0.2 Neut # (Auto) 8400 H PT 15.3 H INR 1.4 H APTT 33 Sodium 148 H Potassium 4.2 Chloride 108 H Carbon Dioxide 26 BUN 23 H Creatinine 0.90 Estimated GFR > 60.0 BUN/Creatinine Ratio 25.6 H Glucose 118 H Calcium 9.2 Total Bilirubin 0.8 AST 49 ALT 30 Alkaline Phosphatase 56 Total Creatine Kinase 214 H CK-MB (CK-2) 5.71 H CK-MB (CK-2) Rel Index 2.7 Troponin I 0.556 H* B-Natriuretic Peptide Total Protein 7.0 Albumin 4.1 Globulin 2.9 Albumin/Globulin Ratio 1.4 TSH 01/24/18 01/25/18 01/25/18 17:25 01:22 05:27 WBC 9.4 RBC 4.29 L Hgb 11.6 L Hct 35.3 L MCV 82.3 MCH 27.1 MCHC 33.0 RDW 16.9 H Plt Count 156 Neut % (Auto) 79.0 H Lymph % (Auto) 11.8 L [place] % (Auto) 8.9 Eos % (Auto) 0.1 L Baso % (Auto) 0.2 Neut # (Auto) 7500 H PT INR APTT Sodium Potassium Chloride Carbon Dioxide BUN Creatinine Estimated GFR BUN/Creatinine Ratio Glucose Calcium Total Bilirubin AST ALT Alkaline Phosphatase Total Creatine Kinase 196 H CK-MB (CK-2) CK-MB (CK-2) Rel Index Troponin I 0.553 H* 0.688 H* B-Natriuretic Peptide Total Protein Albumin Globulin Albumin/Globulin Ratio TSH 01/25/18 01/25/18 01/25/18 05:27 05:27 05:27 WBC RBC Hgb Hct MCV MCH MCHC RDW Plt Count Neut % (Auto) Lymph % (Auto) [place] % (Auto) Eos % (Auto) Baso % (Auto) Neut # (Auto) PT INR APTT Sodium 142 Potassium 4.4 Chloride 107 Carbon Dioxide 26 BUN 22 H Creatinine 0.90 Estimated GFR > 60.0 BUN/Creatinine Ratio 24.4 H Glucose 130 H Calcium 9.0 Total Bilirubin AST ALT Alkaline Phosphatase Total Creatine Kinase CK-MB (CK-2) CK-MB (CK-2) Rel Index Troponin I B-Natriuretic Peptide 822.0 H Total Protein Albumin Globulin Albumin/Globulin Ratio TSH 3.19 Discharge Plan Discharge Plan Discharge Problem: Atrial fibrillation, Pneumonia Patient Disposition: [facility] Other facility: [facility] Under care of provider: Hospitalists Discharge Med Rec/Prescriptions Discharge Orders: Discharge (Order); Ordered 01/25/18 Ordered By: Miranda Kebede Discharge Health Status Multidrug resistant organism: No MDRO Provider Discharge Instructions Diet: Low-sodium Food texture: Regular Activity: as tolerated following cardiac catherization Discharge Data Attending Provider: Miranda Kebede Admit Date/Time: 01/24/18 18:23
[2018-01-25] MEDS: ONDANSETRON 4 MG/2 ML INJ IV (13:51)
[2018-01-25] MEDS: POTASSIUM CHLORIDE 20 MEQ/15 ML UDC PO (17:30)
[2018-01-25] MEDS: levoFLOXacin 750 MG/150 ML PIGGYBACK 100 MG IV (20:57)
--- NOTE | 2018-01-25 21:21 | PC.NURSE ---
MAHAD SHIFT NOTE: Patient having one episode of increased HR to 140s this shift while standing to use urinal at bedside. Upon relaxing back in bed HR returned to rates in 90s. Denies pain or nausea. Patient pleasant and oriented times 4. Patient in no acute distress, monitoring and evaluation advisor in place. IV patent. Patient awaiting bed at [facility] and anticipates transfer tomorrow. Call light in reach, will continue to monitor.
[2018-01-26] VITALS (14 sets, daily range): BP systolic 117–135; BP diastolic 54–96; PULSE 65–107; RESP 14–18; TEMP 36.3–37.1; O2SAT 89–98
--- NOTE | 2018-01-26 | DI.RAD.S_ITS ---
PROCEDURE: XR CHEST 2V INDICATIONS: pleural effusions TECHNIQUE: 2 views of the chest were acquired. COMPARISON: [facility], CR, XR CHEST 1V, 01/24/2018, 15:42. FINDINGS: Surgical changes and devices: None. Lungs and pleura: N new small bilateral pleural effusions. Interval progression of interstitial pulmonary opacities greatest in the perihilar lungs consistent with fluid imbalance. More focal right basilar consolidation has progressed. Mediastinum: Mediastinal contours are normal. Heart size is normal. Bones and chest wall: No suspicious bony abnormalities. Soft tissues appear unremarkable. IMPRESSION: Progression of findings most consistent with congestive heart failure exacerbation. More focal right basilar pulmonary opacities may represent superimposed infection. Dictated by: Marques Sharpe M.D. on 01/26/2018 at 13:24 Approved by: Marques Sharpe M.D. on 01/26/2018 at 13:26
[2018-01-26] MEDS: METOPROLOL 50 MG TABLET PO ×5 (00:26→23:54)
[2018-01-26] MEDS: FUROSEMIDE 40 MG/4 ML VIAL IV (00:26)
[2018-01-26] MEDS: SODIUM CHLORIDE 0.9% FLUSH 10 ML IV ×3 (00:26→20:24)
--- NOTE | 2018-01-26 00:48 | PC.NURSE ---
Addendum entered by Janice Fall R.N. 01/26/18 05:42: Slept at intervals related to urinary frequency after receiving scheduled Lasix around 0000. GROUP HOME MANAGER reports no HR > 100 this shift and states last tele reading was more aflutter than afib. Original Note: Patient is drowsy but oriented. Breath sounds CTA but RA sat only 89% so oxygen started at 1L/min per NC and sat increased to 93%. HR irregular with rate of 90 per vehicle monitor technician. Denies nausea. BT present and abdomen is soft. Having frequency related to diuretic but denies dysuria, urgency or incontinence. Due to HR increasing when out of bed discussed need for patient to have staff assist; bed alarm activated so that if patient forgets to call staff can be alerted. Independent with bed mobility. Fall risk score is moderate.
[2018-01-26] MEDS: POTASSIUM CHLORIDE 20 MEQ TAB PO ×2 (08:26→17:15)
[2018-01-26] MEDS: ATORVASTATIN 20 MG TABLET PO (08:27)
[2018-01-26] MEDS: ASPIRIN EC 81 MG TABLET PO (08:27)
[2018-01-26] MEDS: LOSARTAN 25 MG TABLET PO (08:27)
[2018-01-26] MEDS: DOCUSATE 100 MG CAPSULE PO (08:27)
[2018-01-26 09:07] LABS: Add Manual Diff / Slide Review NO; Basophils Percent Auto 0.6 % (0-2); Eosinophils Percent Auto 0.2 % (2-4); Hematocrit 34.5 % (41-53); Hemoglobin 11.5 g/dL (13.5-17.5); Lymphocytes Percent Auto 22.7 % (25-40); Mean Corpuscular HGB Conc 33.2 % (30-36); Mean Corpuscular Hemoglobin 27.2 PG (26-34); Monocytes Percent Auto 12.3 % (3-14); Neutrophils Absolute Auto 4900 /uL (3000-5900); Neutrophils Percent Auto 64.2 % (50-75); Platelet Count 178 X10^3/uL (150-400); Red Blood Cell Count 4.21 X10^6/uL (4.5-5.9); Red Cell Distribution Width 16.6 % (11.6-14.8); White Blood Cell Count 7.6 X10^3/uL (4.5-11.0)
[2018-01-26 09:15] LABS: BUN Creatinine Ratio 24.6 (6-22); Blood Urea Nitrogen 32 mg/dL (9-20); Calcium 8.5 mg/dL (8.4-10.2); Carbon Dioxide 29 mmol/L (22-32); Chloride 99 mmol/L (98-107); Estimated Glomerular Filt Rate 53.5 mL/min (>60); Glucose 119 mg/dL (80-110); HEMOLYSIS < 15 (0-50); Magnesium 1.8 mg/dL (1.6-2.3); Potassium 4.1 mmol/L (3.4-5.1); Sodium 140 mmol/L (137-145)
--- NOTE | 2018-01-26 11:32 | PC.NURSE ---
Pt is stable, he denies any chest pain, sob, and hr wnl, however he does have an irregular heart rate. Using urinal and putting out adequate urine as pt is getting lasix iv. Ate well at breakfast and has no pain or nausea at this time.
--- NOTE | 2018-01-26 11:46 | PM.PN.1 ---
Subjective Date Patient Seen: 01/26/18 Interval history: Overall he feels like his breathing has improved. He denies neck, back or shoulder pain He denies palpitations. His heart rate has improved. He has no cough Exam Vital Signs (past 8 hours): - 01/26/18 03:54 01/26/18 05:15 01/26/18 05:37 Temperature 98.7 F Pulse Rate 72 Respiratory Rate 16 Blood Pressure 125/92 H Pulse Oximetry 95 95 93 01/26/18 08:00 01/26/18 09:54 Temperature 97.6 F Pulse Rate 90 Respiratory Rate 18 Blood Pressure 129/76 H Pulse Oximetry 94 95 Fraction of Inspired Oxygen 21 Oxygen Delivery Method Room Air Oxygen Flow Rate 0 Narrative Exam Narrative: Awake, Alert, and appropriate Lungs: Decreased breath sounds CV: Tachy irregularly, irregular 2/6 VADIM Abd: Soft/ non tender/ non distended Ext: no edema Objective Labs Result Diagrams: 01/26/18 08:48 01/26/18 08:48 Labs: Laboratory Results - last 24 hr 01/26/18 01/26/18 01/26/18 08:48 08:48 08:48 WBC 7.6 RBC 4.21 L Hgb 11.5 L Hct 34.5 L MCV 82.0 MCH 27.2 MCHC 33.2 RDW 16.6 H Plt Count 178 Neut % (Auto) 64.2 Lymph % (Auto) 22.7 L [place] % (Auto) 12.3 Eos % (Auto) 0.2 L Baso % (Auto) 0.6 Neut # (Auto) 4900 Sodium 140 Potassium 4.1 Chloride 99 Carbon Dioxide 29 BUN 32 H Creatinine 1.30 H Estimated GFR 53.5 L BUN/Creatinine Ratio 24.6 H Glucose 119 H Calcium 8.5 Magnesium 1.8 Assessment & Plan (1) Acute systolic heart failure: Problem details: Continue Lasix for now. Given increased creatinine will switch to oral. Will check chest xray to day as well. Will resume CURLY-1 Given hypertension he needs it now Echo: confirmed EF 25% with hypokinetic ventricle, dilated right ventricle, severe mitral regurgitation, and some tricuspid regurgitation. Awaiting transfer to [facility], no beds available at this time. Patient will need Cardiac Cath Current visit: Yes Status: Acute (2) Non-STEMI (non-ST elevated myocardial infarction): Problem details: Patient is on Asa, B-renaldo, Statin Awaiting transfer to [facility] for definitive cardiac catherization today Current visit: Yes Status: Acute (3) Elevated troponin: Problem details: Will trend troponins and continue Asa, Statin, Transfer for cardiac cath Current visit: Yes Status: Acute (4) Atrial fibrillation: Problem details: Will continue metoprolol every 6 hours, Will check echo cardiogram, check TSH Continue eliquis. Increased metoprolol. Heart rate noted to be 61 earlier, will follow closely to be sure we don't have SSS involved Qualifiers: Atrial fibrillation type: persistent Qualified Code(s): I48.1 - Persistent atrial fibrillation Current visit: Yes Status: Acute (5) Pneumonia: Problem details: Continue IV antibiotics, Tylenol for fever Qualifiers: Aspiration pneumonia type: Laterality: right Lung location: lower lobe of lung Pneumonia type: due to unspecified organism Qualified Code(s): J18.1 - Lobar pneumonia, unspecified organism Current visit: Yes Status: Acute
--- NOTE | 2018-01-26 11:50 | P.PN_ITS ---
Subjective Date Patient Seen: 01/26/18 Interval history: Overall he feels like his breathing has improved. He denies neck, back or shoulder pain He denies palpitations. His heart rate has improved. He has no cough Exam Vital Signs (past 8 hours): - 01/26/18 03:54 01/26/18 05:15 01/26/18 05:37 Temperature 98.7 F Pulse Rate 72 Respiratory Rate 16 Blood Pressure 125/92 H Pulse Oximetry 95 95 93 01/26/18 08:00 01/26/18 09:54 Temperature 97.6 F Pulse Rate 90 Respiratory Rate 18 Blood Pressure 129/76 H Pulse Oximetry 94 95 Fraction of Inspired Oxygen 21 Oxygen Delivery Method Room Air Oxygen Flow Rate 0 Narrative Exam Narrative: Awake, Alert, and appropriate Lungs: Decreased breath sounds CV: Tachy irregularly, irregular 2/6 VADMI Abd: Soft/ non tender/ non distended Ext: no edema Objective Labs Result Diagrams: 01/26/18 08:48 01/26/18 08:48 Labs: Laboratory Results - last 24 hr 01/26/18 01/26/18 01/26/18 08:48 08:48 08:48 WBC 7.6 RBC 4.21 L Hgb 11.5 L Hct 34.5 L MCV 82.0 MCH 27.2 MCHC 33.2 RDW 16.6 H Plt Count 178 Neut % (Auto) 64.2 Lymph % (Auto) 22.7 L [place] % (Auto) 12.3 Eos % (Auto) 0.2 L Baso % (Auto) 0.6 Neut # (Auto) 4900 Sodium 140 Potassium 4.1 Chloride 99 Carbon Dioxide 29 BUN 32 H Creatinine 1.30 H Estimated GFR 53.5 L BUN/Creatinine Ratio 24.6 H Glucose 119 H Calcium 8.5 Magnesium 1.8 Assessment & Plan (1) Acute systolic heart failure: Problem details: Continue Lasix for now. Given increased creatinine will switch to oral. Will check chest xray to day as well. Will resume CURLY-1 Given hypertension he needs it now Echo: confirmed EF 25% with hypokinetic ventricle, dilated right ventricle, severe mitral regurgitation, and some tricuspid regurgitation. Awaiting transfer to [facility], no beds available at this time. Patient will need Cardiac Cath Current visit: Yes Status: Acute (2) Non-STEMI (non-ST elevated myocardial infarction): Problem details: Patient is on Asa, B-renaldo, Statin Awaiting transfer to [facility] for definitive cardiac catherization today Current visit: Yes Status: Acute (3) Elevated troponin: Problem details: Will trend troponins and continue Asa, Statin, Transfer for cardiac cath Current visit: Yes Status: Acute (4) Atrial fibrillation: Problem details: Will continue metoprolol every 6 hours, Will check echo cardiogram, check TSH Continue eliquis. Increased metoprolol. Heart rate noted to be 61 earlier, will follow closely to be sure we don't have SSS involved Qualifiers: Atrial fibrillation type: persistent Qualified Code(s): I48.1 - Persistent atrial fibrillation Current visit: Yes Status: Acute (5) Pneumonia: Problem details: Continue IV antibiotics, Tylenol for fever Qualifiers: Aspiration pneumonia type: Laterality: right Lung location: lower lobe of lung Pneumonia type: due to unspecified organism Qualified Code(s): J18.1 - Lobar pneumonia, unspecified organism Current visit: Yes Status: Acute
[2018-01-26] MEDS: FUROSEMIDE 40 MG TABLET PO (12:41)
[2018-01-26] MEDS: APIXABAN 5 MG TABLET PO (13:44)
[2018-01-26 18:08] LABS: BUN Creatinine Ratio 33.3 (6-22); Blood Urea Nitrogen 40 mg/dL (9-20); Calcium 8.3 mg/dL (8.4-10.2); Carbon Dioxide 28 mmol/L (22-32); Chloride 99 mmol/L (98-107); Estimated Glomerular Filt Rate 58.7 mL/min (>60); Glucose 94 mg/dL (80-110); HEMOLYSIS 33 (0-50); Potassium 4.3 mmol/L (3.4-5.1); Sodium 139 mmol/L (137-145)
[2018-01-26] MEDS: SODIUM CHLORIDE 0.9% 250 ML 21 ML IV (20:23)
[2018-01-26] MEDS: levoFLOXacin 750 MG/150 ML PIGGYBACK 100 MG IV (20:23)
[2018-01-27] VITALS: BP 134/87; PULSE 70; O2SAT 97
[2018-01-27 00:06] LABS: Creatine Kinase 94 U/L (55-170)
[2018-01-27 00:56] LABS: Troponin I 0.292 ng/mL (0.01-0.034)
--- NOTE | 2018-01-27 01:32 | PC.NURSE ---
Dr. Peña notified with Troponin results of 0.292 down from last results 01/25 @ 0122 was 0.688. No new order received, pt. denies any CP or back pain, will monitor.
[2018-01-27 05:15] VITALS: BP 151/91; PULSE 62; RESP 18; TEMP 36.5; O2SAT 97
[2018-01-27] MEDS: METOPROLOL 50 MG TABLET PO ×3 (05:58→18:07)
[2018-01-27 06:25] LABS: Blood Urea Nitrogen 33 mg/dL (9-20); Calcium 8.4 mg/dL (8.4-10.2); Carbon Dioxide 28 mmol/L (22-32); Chloride 102 mmol/L (98-107); Estimated Glomerular Filt Rate > 60.0 mL/min (>60); Glucose 92 mg/dL (80-110); HEMOLYSIS < 15 (0-50); Sodium 139 mmol/L (137-145)
[2018-01-27 07:00] VITALS: O2SAT 94
[2018-01-27 08:00] VITALS: BP 144/92; PULSE 61; RESP 20; TEMP 36.3; O2SAT 97
[2018-01-27] MEDS: ATORVASTATIN 20 MG TABLET PO (10:11)
[2018-01-27] MEDS: LOSARTAN 25 MG TABLET PO (10:11)
[2018-01-27] MEDS: POTASSIUM CHLORIDE 20 MEQ TAB PO ×2 (10:11→18:07)
[2018-01-27] MEDS: ASPIRIN EC 81 MG TABLET PO (10:12)
[2018-01-27] MEDS: DOCUSATE 100 MG CAPSULE PO (10:12)
[2018-01-27] MEDS: SODIUM CHLORIDE 0.9% FLUSH 10 ML IV (10:13)
[2018-01-27] MEDS: FUROSEMIDE 40 MG TABLET PO (10:19)
--- NOTE | 2018-01-27 11:41 | PC.NURSE ---
Pt is still waiting for a bed at [facility]. VSS and pt is comfortable.
[2018-01-27 15:00] VITALS: O2SAT 94
[2018-01-27 16:00] VITALS: BP 138/94; PULSE 83; RESP 18; TEMP 36.3; O2SAT 95
--- NOTE | 2018-01-27 18:10 | PM.DS.1 ---
History of Present Illness Date Patient Seen: 01/27/18 Time Patient Seen: 18:10 Chief complaint: elevated heart rate,back pain Narrative: Patient is a very pleasant 77 years of age male who presents initially with aches around the chest wall complaint. Patient has prior history of atrial fibrillation. Patient was noted in rapid AFib at the time of admission with an elevated troponin of 0.688. He also had an elevated BNP of 833 with acute decompensated systolic heart failure diagnosis as well. Patient was admitted to the hospital for treatment of the community-acquired pneumonia, the rapid atrial fibrillation and the acute decompensated systolic heart failure. Discharge Providers Date of admission: 01/24/18 18:23 Consults: 01/24/18 19:22 Consult to Physician Routine Comment: Consulting Provider: Miranda Kebede Reason for consultation: admission Has provider been notified: Yes Discharge provider: Woodrow Peña MD Summary Discharge Diagnosis: 1. Acute decompensated systolic heart failure with fluid overload Much improved during hospital course. Initial BNP was 833. Patient diuresed effectively with the IV Lasix provided. More recent serum creatinine of 1.1 Plan for patient transfer today to [facility] in [facility] for patient to undergo cardiac catheterization to address what might be underlying ischemic cardiomyopathy. 2. Elevated troponin on admission Initial troponin level was 0.688. More recent serum troponin trended down 2.2. Plan for patient to undergo cardiac catheterization at [facility] 3. Right lower lobe community-acquired pneumonia Patient has been tolerating Levaquin 750 mg IV daily provided. Respiratory status appears stable 4. Rapid AFib The patient has responded to the beta-renaldo provided. Patient was placed on apixaban 5 mg daily dose was held today in preparation for patient undergo cardiac catheterization Hospital Course: Patient is a very pleasant 77 years of age male who presents initially with aches around the chest wall complaint. Patient has prior history of atrial fibrillation. He has also prior history of an myocardial infarction with stent placement in 2003. Patient also noted in past history to have CHF. During the initial workup of the patient was discovered he has a right lower lobe pneumonia and was started on Levaquin antibiotic to treat. Patient was also noted to have a rapid AFib on admission to the hospital. Patient had a troponin elevation on admission of 0.688. His BNP was noted at 833. Patient was noted to have acute decompensated systolic heart failure on admission. Patient was aggressively treated for the acute CHF with IV Lasix therapy. He he responded quite favorably with the affective diuresis. The IV Lasix was transitioned to oral Lasix therapy. The troponin was monitored and came down the point to 0.22. Printing Shop Supervisor Dr. Farooq provided a consultation note and recommended patient to undergo cardiac catheterization. There was concern patient may have an underlying ischemic cardiomyopathy condition. For the last several days we are waiting for transfer to [facility] where he can undergo cardiac catheterization. No bed became available. It did not look promising for the next 24 hr. instrument shop supervisor contacted [facility] and I spoke to several physicians. Dr. Jin product safety and standards engineer agreed that the cardiac catheterization appeared appropriate. I also spoke to Dr. Stoddard hospitalist at [facility] who would be the attending of record upon transfer. At the time of my exam today and upon transfer patient is clinically stable. He is chest pain-free. Patient with an AFib with a ventricular response approximately 70 beats per minute. He has been tolerating the Levaquin antibiotic provided. As noted he diuresed effectively the added fluid with the IV Lasix. Will proceed to discharge. Status at Discharge Cognitive/behavioral status at discharge: Good cognitive function well oriented pleasant mood Time Spent with Patient Greater than 30 minutes (50 min to complete discharge including more numerous conversations with physicians today including hospitalist and product safety and standards engineer at [facility]) Exam Vital Signs (past 8 hours): - 01/27/18 15:00 01/27/18 16:00 Temperature 97.4 F L Pulse Rate 83 Respiratory Rate 18 Blood Pressure 138/94 H Pulse Oximetry 94 95 Fraction of Inspired Oxygen 21 Oxygen Delivery Method Room Air Oxygen Flow Rate 1 Narrative Exam Narrative: Patient started awake and alert in no apparent distress Psychiatric well oriented to time place person mood is pleasant cooperative affect is appropriate Respiratory fairly good breath sounds are noted bilateral no wheezes noted Cardiovascular irregular irregular rhythm with a ventricular response rate of about 70 per minute. Gastrointestinal soft nontender positive bowel sounds no masses no bruits Objective Labs Result Diagrams: 01/26/18 08:48 01/27/18 05:54 Labs: Laboratory Results - last 24 hr 01/26/18 01/26/18 01/27/18 17:35 23:39 05:54 Sodium 139 139 Potassium 4.3 4.0 Chloride 99 102 Carbon Dioxide 28 28 BUN 40 H 33 H Creatinine 1.20 1.10 Estimated GFR 58.7 L > 60.0 BUN/Creatinine Ratio 33.3 H 30.0 H Glucose 94 92 Calcium 8.3 L 8.4 Total Creatine Kinase 94 Troponin I 0.292 H* Discharge Plan Discharge Plan Patient Disposition: [facility] Other facility: [facility]. DEVI Dos Santos Under care of provider: Hospitalists Discharge comment: DR Alejandre, Printing Shop Supervisor at [facility] agrees for transfer of patient to undergo Cardiac Cath. Accepting physician as Attending will be Dr Stoddard Hospitalist. Discharge Med Rec/Prescriptions Discharge Orders: Discharge (Order); Ordered 01/27/18 Ordered By: Miranda Kebede Discharge Health Status Multidrug resistant organism: No MDRO Provider Discharge Instructions Diet: Low-sodium Food texture: Regular Activity: as tolerated following cardiac catherization Discharge Data Attending Provider: Miranda Kebede Admit Date/Time: 01/24/18 18:23
--- NOTE | 2018-01-27 19:26 | PC.NURSE ---
Addendum entered by Renae Reis R.N. 01/27/18 19:40: Report given to [place] RN @ [id number]. Original Note: Transfer Note Pt A&O, VSS, 94% RA. No complaints of chest pain or shortness of breath. All questions concerns by pt addressed regarding transfer to [facility]. Report given to ambulance RN, no question or concerns. Transfer packet given to ambulance RN. Tele box removed from pt. Belongings packed and sent with family. Awaiting call from RN in [facility] for report.
== END 2018-01-27 19:30 | disposition short-term general hospital (02) | DRG 280 ==
LOC: ED 18:19 → AC 01-25 08:49
PROVIDERS: Admitting Provider Internal Medicine; Emergency Provider Emergency Medicine; Visit Provider Internal Medicine
DX: I21.4 Non-ST elevation (NSTEMI) myocardial infarction (principal); I50.21 Acute systolic (congestive) heart failure; J18.1 Lobar pneumonia, unspecified organism; E87.0 Hyperosmolality and hypernatremia; I48.1 Persistent atrial fibrillation; Z79.01 Long term (current) use of anticoagulants; I11.0 Hypertensive heart disease with heart failure; Z86.73 Personal history of transient ischemic attack (TIA), and cerebral infarction without residual deficits
CPT/HCPCS: 36415; 36591; 71045; 71046; 80048; 80053; 82550; 82553; 83735; 83880; 84443; 84484; 85025; 85610; 85730; 93005; 93010; 93306; 94760; 96365; 96375; 99283; 99285; J1940; J1956; J2270; J2405